=== PATIENT | female | born 1995 | race Hispanic/Latino ===

== ENCOUNTER 2018-05-20 10:57 | Inpatient (IN) | payer OTHER ==
[~2018-05-20] VITALS: Ht 172.7 cm; Wt 108.0 kg
[~2018-05-20 10:57] MED LIST: ADDERALL 20 MG20 MG PO; ATARAX PO; SYMBICORT 160-4.6 GM; Z LOESTRIN; Z.0.ALBUTEROL SULF8. INH; Z.0.SINGULAIR10 MG PO; Z.0.VERAMYST10 GM
--- OUTSIDE RECORDS SUMMARY | 2018-05-20 11:03 | XMS REPORT ---
Author Author [facility] Address Unknown Phone Unavailable Care Team Providers Care Morning Caregiver Name Role Phone Unavailable Unavailable Payers Payer Name Policy Type Policy Number Effective Date Expiration Date Problems This patient has no known problems. Allergies, Adverse Reactions, Alerts Allergy Name Allergy Type Status Severity Reaction(s) Onset Date Inactive Date Treating Clinician Comments No Known Allergies DA Active U 2011-06-12 00:00:00 Medications This patient has no known medications. Results Test Description Test Time Test Comments Text Results Atomic Results Result Comments BASIC METABOLIC PANEL 2018-05-05 22:43:00 SODIUM (test code=NA) 137 mEq/L 134-147 POTASSIUM (test code=K) 3.4 mEq/L 3.4-5.0 CHLORIDE (test code=CL) 106 mEq/L 100-108 CARBON DIOXIDE (test code=CO2) 24 mEq/L 21-33 ANION GAP (test code=GAP) 10 0-20 GLUCOSE (test code=GLU) 81 mg/dL 70-110 BLOOD UREA NITROGEN (test code=BUN) 9 mg/dL 7-18 GLOMERULAR FILTRATION RATE (test code=GFR) 89.7 110-120 Units of measure=ml/min/1.73 m2 CREATININE (test code=CREAT) 0.8 mg/dL 0.6-1.3 CALCIUM (test code=CA) 9.1 mg/dL 8.0-10.5 HEPATIC FUNCTION [id number] 22:43:00* Test Item Value Reference Range Comments TOTAL PROTEIN (test code=PROT) 9.8 g/dL 6.4-8.2 ALBUMIN (test code=ALB) 4.20 g/dL 3.4-5.0 BILIRUBIN TOTAL (test code=BILT) 0.80 mg/dL 0.0-1.0 BILIRUBIN DIRECT (test code=BILD) 0.20 MG/DL 0.0-0.30 BILIRUBIN INDIRECT (test code=BILIND) 0.60 MG/DL SGOT/AST (test code=AST) 22 IUnit/L 15-37 SGPT/ALT (test code=ALT) 26 IUnit/L 15-65 ALKALINE PHOSPHATASE TOTAL (test code=ALKP) 99 IUnit/L 20-125 HCG SERUM [id number] 22:43:00* Test Item Value Reference Range Comments HCG SERUM QUAL (test code=HCGQL) SERUM NEGATIVE NEGATIVE BASIC METABOLIC [id number] 22:36:00* Test Item Value Reference Range Comments SODIUM (test code=NA) mEq/L 134-147 POTASSIUM (test code=K) mEq/L 3.4-5.0 CHLORIDE (test code=CL) mEq/L 100-108 CARBON DIOXIDE (test code=CO2) mEq/L 21-33 ANION GAP (test code=GAP) 0-20 GLUCOSE (test code=GLU) mg/dL 70-110 BLOOD UREA NITROGEN (test code=BUN) mg/dL 7-18 GLOMERULAR FILTRATION RATE (test code=GFR) 110-120 CREATININE (test code=CREAT) mg/dL 0.6-1.3 CALCIUM (test code=CA) mg/dL 8.0-10.5 HEPATIC FUNCTION [id number] 22:36:00* Test Item Value Reference Range Comments TOTAL PROTEIN (test code=PROT) g/dL 6.4-8.2 ALBUMIN (test code=ALB) g/dL 3.4-5.0 BILIRUBIN TOTAL (test code=BILT) mg/dL 0.0-1.0 BILIRUBIN DIRECT (test code=BILD) MG/DL 0.0-0.30 SGOT/AST (test code=AST) IUnit/L 15-37 SGPT/ALT (test code=ALT) IUnit/L 15-65 ALKALINE PHOSPHATASE TOTAL (test code=ALKP) IUnit/L 20-125 HCG SERUM [id number] 22:36:00* Test Item Value Reference Range Comments HCG SERUM QUAL (test code=HCGQL) SERUM NEGATIVE NEGATIVE URINALYSIS [id number] 22:35:00* Test Item Value Reference Range Comments UA COLOR (test code=COLU) STRAW YEL/STRAW UA APPEARANCE (test code=APPU) CLEAR CLEAR UA GLUCOSE DIPSTICK (test code=DGLUU) NEGATIVE NEGATIVE UA BILIRUBIN DIPSTICK (test code=BILU) NEGATIVE NEGATIVE UA KETONE DIPSTICK (test code=KETU) NEGATIVE NEGATIVE UA SPECIFIC GRAVITY (test code=SGU) 1.002 1.005-1.030 UA BLOOD DIPSTICK (test code=DAVIDSON) 3+ NEGATIVE UA PH DIPSTICK (test code=KALIN) 6.0 5.0-7.0 UA PROTEIN DIPSTICK (test code=PROU) NEGATIVE NEGATIVE UA UROBILINIOGEN DIPSTICK (test code=URO) 0.2 mg/dL 0.2-1.0 UA NITRITE DIPSTICK (test code=GABY) NEGATIVE NEGATIVE UA LEUKOCYTE ESTERASE DIPSTICK (test code=LEUU) NEGATIVE NEGATIVE UA WBC (test code=WBCU) 0-3 WBC/HPF 0-3 UA RBC (test code=RBCU) 0-3 RBC/HPF 0-3 UA BACTERIA (test code=BACU) TRACE /HPF NONE SEEN UA SQUAMOUS CELLS (test code=SQU) 0-5 /HPF NONE SEEN COMMENTS: Clean CatchCBC W/AUTO [id number] 22:20:00* Test Item Value Reference Range Comments WHITE BLOOD CELL (test code=WBC) 13.86 x10 3/uL 4.5-11.0 RED BLOOD CELL (test code=RBC) 4.83 x10 6/uL 3.54-5.02 HEMOGLOBIN (test code=HGB) 12.1 g/dL 11.0-15.0 HEMATOCRIT (test code=HCT) 40.3 % 33.0-45.0 MEAN CELL VOLUME (test code=MCV) 83.4 fL 81.0-99.0 MEAN CELL HGB (test code=MCH) 25.1 pg 27.0-33.0 MEAN CELL HGB CONCETRATION (test code=MCHC) 30.0 g/dL 33.0-37.0 RED CELL DISTRIBUTION WIDTH CV (test code=RDW) 14.7 % 11.5-14.5 RED CELL DISTRIBUTION WIDTH SD (test code=RDW-SD) 44.6 fL 37.0-54.0 PLATELET COUNT (test code=PLT) 310 x10 3/uL 150-400 MEAN PLATELET VOLUME (test code=MPV) 10.5 fL 7.0-9.0 NEUTROPHIL % (test code=NT%) 81.2 % 56.0-77.0 IMMATURE GRANULOCYTE % (test code=IG%) 0.5 % 0.0-2.0 LYMPHOCYTE % (test code=LY%) 12.8 % 14.0-32.0 MONOCYTE % (test code=MO%) 5.1 % 4.8-9.0 EOSINOPHIL % (test code=EO%) 0.1 % 0.3-3.7 BASOPHIL % (test code=BA%) 0.3 % 0.0-2.0 NUCLEATED RBC % (test code=NRBC%) 0.0 % 0-0 NEUTROPHIL # (test code=NT#) 11.26 x10 3/uL 2.0-7.6 IMMATURE GRANULOCYTE # (test code=IG#) 0.07 x10 3/uL 0.00-0.03 LYMPHOCYTE # (test code=LY#) 1.77 x10 3/uL 1.0-3.8 MONOCYTE # (test code=MO#) 0.71 x10 3/uL 0.1-0.8 EOSINOPHIL # (test code=EO#) 0.01 x10 3/uL 0.0-0.2 BASOPHIL # (test code=BA#) 0.04 x10 3/uL 0.0-0.2 NUCLEATED RBC # (test code=NRBC#) 0.00 x10 3/uL 0.0-0.1 MANUAL DIFF REQUIRED (test code=MDIFF) NO - US TRANSVAGINAL NON [id number] 21:12:00 Name: RIGO WILBURN TEGAN [facility] : 1995 Age/S: 22 / F [address] [place] [address] Unit #: [id number] Loc: [place] [address] Phys: DeshaunTortio DO Acct: [id number] Dis Date: Status: REG ER PHONE #: [phone] Exam Date: 05/05/20182035 FAX #: [phone] Reason: PAIN EXAMS: CPT CODE: [id number] [place] [address] TRANSABDOMINAL AND TRANSVAGINAL PELVIC ULTRASOUND, BILATERAL DUPLEX OVARIAN DOPPLER INDICATION: Pelvic pain, vaginal bleeding and fever. Intrauterine device. Rule out ovarian torsion or infection. TECHNIQUE: Transabdominal and transvaginal pelvic ultrasound was performed with osborn scale and Doppler images. Bilateral duplex ovarian Doppler was performed. COMPARISONS: CT abdomen and pelvis 05/27/2011, pelvic ultrasound 05/27/2011 FINDINGS: TRANSABDOMINAL PELVIC ULTRASOUND: The uterus measures 4.5 cm transverse. There is an intrauterine device within the endometrial cavity. The endometrial stripe measures 0.8 cm thick. There is no endometrial canal fluid detected. The right ovary measures 1.1 x 2 x 1.3 cm. The left ovary is not visualized due to in tervening bowel. There is no intra-abdominal free fluid. Transvaginal pelvic ultrasound was performed in order to better visua lize the pelvic structures. TRANSVAGINAL PELVIC ULTRASOUND: The uterus measures 6.8 x 4.1 x 4.8 cm. There is an intrauterine device within the endometrial cavity. The endometrial stripe measures 1.2 cm thick, normal for a patient this age. There is no endometrial canal fluid. The right ovary measures 3.7 x 2.1 x 1.6 cm. There is nor mal color Doppler blood flow to the right ovary. There is a normal low resistance arterial spectral Doppler waveform with peak systolic veloc ity of 13 cm/s. The left ovary measures 3.7 x 1.6 x 2.7 cm with no rmal follicular changes. There is normal color Doppler blood flow to the left ovary. There is a normal low resistance arterial spectral Doppler wa veform. The peak systolic velocity is 15 cm/s. PAGE 1 Signed Report (CONTINUED) Name: WILBURNRIGOLORNA HELTON [facility] : 1995 Age/S: 22 / F [address] [place] [address] Blvd Unit #: [id number] Loc: [place] [address] Phys: DeshaunTorito DO Acct: [id number] Dis Date: Status: REG ER PHONE #: [phone] Exam Date: 05/05/20182035 FAX #: [phone] Reason: PAIN EXAMS: CPT CODE: [id number] [place] [address] <Continued> There is a small amount of simple free fluid in the pelvis. BILATERAL DUPLEX OVARIAN DOPPLER: There is normal color Doppler blood flow to the left ovary. There is a normal low resistance arterial spectral Doppler waveform. The peak systolic velocity is 15 cm/s. There is normal color Doppler blood flow to the right ovary. There is a normal low resistance arterial spectral Doppler waveform with peak systolic velocity of 13 cm/s. IMPRESSION: 1. There is no acute uterine or ovarian abnormality detected. 2. Normal bilateral ovarian blood flow. 3. Normal intrauterine device within the endometrial cavity. 4. There is a small amount of nonspecific simple free fluid in the pelvis. This may be physiologic or reactive. at 2111 Reported and signed by: Jeff Chow D.O. CC: Torito Meade DO Technologist: Ester Billy RDMS (AB) (OB) Trnscb Date/Time: 05/05/2018 (2111) [email or web address] Orig Print D/T: S: 05/05/2018 (2115) Probe: [id number] PAGE 2 Signed Report - US PELVIS [id number] 21:12:00 Name: RIGO WILBURN [facility] : 1995 Age/S: 22 / F [address] [place] [address] Unit #: [id number] Loc: [place] [address] Phys: Mo Meade DO Acct: [id number] Di s Date: Status: REG ER PHONE #: Exam Date: 05/05/20182035 FAX #: Reason: Pelvic Pain EXAMS: CPT CODE: [id number] US PELVIS COM PLETE 63473 TRANSABDOMINAL AND TRANSV AGINAL PELVIC ULTRASOUND, BILATERAL DUPLEX OVARIAN DOPPLER I NDICATION: Pelvic pain, vaginal bleeding and fever. Intrauterine device. Rule out ovarian torsion or infection. TECHNIQUE: Transabdominal and transvaginal pelvic ultrasound was performed with osborn scale and Dopp ler images. Bilateral duplex ovarian Doppler was performed. COMPARISONS: CT abdomen and pelvis 05/27/2011, pelvic ultrasound 05/27/2011 FINDINGS: TRANSABDOMINAL PELVIC ULTRASOUND: The uterus measures 4.5 cm transverse. There is an intrauterine device within the endometrial cavity. The endometrial stripe measures 0.8 cm thick. There is no endometrial canal fluid detected. The right ov jennifer measures 1.1 x 2 x 1.3 cm. The left ovary is not visualized due to in tervening bowel. There is no intra-abdominal free fluid. Transvaginal pelvic ultrasound was performed in order to better visua lize the pelvic structures. TRANSVAGINAL PELVIC ULTRASOUND: The uterus measures 6.8 x 4.1 x 4.8 cm. There is an intrauterine device within the endometrial cavity. The endometrial stripe measures 1.2 cm thick, normal for a patient this age. There is no endometrial canal fluid. The right ovary measures 3.7 x 2.1 x 1.6 cm. There is nor mal color Doppler blood flow to the right ovary. There is a normal low resistance arterial spectral Doppler waveform with peak systolic veloc ity of 13 cm/s. The left ovary measures 3.7 x 1.6 x 2.7 cm with no rmal follicular changes. There is normal color Doppler blood flow to the left ovary. There is a normal low resistance arterial spectral Doppler wa veform. The peak systolic velocity is 15 cm/s. PAGE 1 Signed Report (CONTINUED) Name: RIGO WILBURN [facility] : 1995 Age/S: 22 / F [address] [place] [address] Unit #: [id number] Loc: [place] [address] Phys: Torito Meade DO Acct: [id number] Dis Date: Status: REG ER PHONE #: [phone] Exam Date: 05/05/20182035 FAX #: [phone] Reason: Pelvic Yazan n EXAMS: CPT CODE: [id number] US PELVIS COMPLETE 25805 <Continued> There is a small amount of simple free fluid in the pelvis. BILATERAL DUPLEX OVARIAN DOPPLER: There is normal color Doppler blood flow to the left ovary. There is a normal low resistance arterial spectral Doppler waveform. The peak systolic velocity is 15 cm/s. There is normal color Doppler blood flow to the right ovary. There is a normal low resistance arterial spectral Doppler waveform with peak systolic velocity of 13 cm/s. IMPRESSION: 1. There is no acute uterine or ovarian abnormality detected. 2. Normal bilateral ovarian blood flow. 3. Normal intrauterine device within the endometrial cavity. 4. There is a small amount of nonspecific simple free fluid in the pelvis. This may be physiologic or reactive. at 2111 Reported and signed by: Jeff Chow D.O. CC: Torito Meade DO Technologist: Ester Billy RDMS () (OB) Trnscb Date/Time: 05/05/2018 (2111) [email or web address] Orig Print D/T: S: 05/05/2018 (2115) Probe: PAGE 2 Signed Report
[2018-05-20] MEDS ORDERED: SODIUM CHLORIDE 0.9% 1000ML 1,000 ML IV STA (11:26)
[2018-05-20] MEDS ORDERED: IBUPROFEN 400 MG TAB PO ONE (11:30)
[2018-05-20] MEDS ORDERED: SODIUM CHLORIDE 0.9% 1000ML 1,000 ML IV SCH (11:30)
[2018-05-20] MEDS ORDERED: HYDROCODONE/APAP 10MG-325MG TAB PO ONE (11:30)
[2018-05-20] MEDS ORDERED: CEFTRIAXONE SOD 1 GM/NS 50 ML 50 ML IV ONE (12:00)
[2018-05-20 12:28] LABS: BASOPHILS # (AUTO) 0.1 (0.0-0.1); BASOPHILS % 0.2 % (0.0-1.0); HEMATOCRIT 34.9 % (34.2-44.1); LYMPHOCYTES # (AUTO) 1.3 (1.0-3.2); LYMPHOCYTES % 4.5 % (18.0-39.1); MEAN CORPUSCULAR HEMOGLOBIN 24.9 pg (28-32); MEAN CORPUSCULAR HGB CONC 31.5 g/dL (31-35); MONOCYTES # (AUTO) 1.8 (0.2-0.8); MONOCYTES % 6.1 % (4.4-11.3); NEUTROPHILS # (AUTO) 25.2 (2.1-6.9); NEUTROPHILS % 88.1 % (38.7-80.0); PLATELET COUNT 379 x10e3/uL (140-360); RED BLOOD COUNT 4.42 x10e6/uL (3.6-5.1); RED CELL DISTRIBUTION WIDTH 15.2 % (11.7-14.4)
[2018-05-20 12:40] LABS: ALANINE AMINOTRANSFERASE 23 IU/L (0-55); ALBUMIN 3.9 g/dL (3.5-5.0); ALKALINE PHOSPHATASE 82 IU/L (40-150); ANION GAP 13.4 mmol/L (8-16); BLOOD UREA NITROGEN 9 mg/dL (7-26); BUN/CREATININE RATIO 10 (6-25); CALCIUM 9.6 mg/dL (8.4-10.2); CARBON DIOXIDE 23 mmol/L (22-29); CHLORIDE 101 mmol/L (98-107); CREATININE, SERUM 0.91 mg/dL (0.57-1.11); EST GLOMERULAR FILTRATION RATE > 60 ML/MIN (60-); GLUCOSE 107 mg/dL (74-118); POTASSIUM 3.4 mmol/L (3.5-5.1); SODIUM 134 mmol/L (136-145)
[2018-05-20 12:56] LABS: CLARITY,URINE SL CLOUDY (CLEAR); COLOR,URINE YELLOW (YELLOW); LEUKOCYTE ESTERASE ,URINE NEGATIVE (NEGATIVE); NITRITE,URINE POSITIVE (NEGATIVE)
[2018-05-20 12:57] LABS: BILIRUBIN,URINE NEGATIVE (NEGATIVE); KETONES,URINE 1+ (NEGATIVE); PROTEIN,URINE DIPSTICK 1+ (NEGATIVE); URINE UROBILINOGEN 0.2 mg/dL (0.2 - 1)
[2018-05-20 12:59] LABS: WBC,URINE (MAN) 21-50 /HPF (0-5)
[2018-05-20 13:00] LABS: BACTERIA,URINE MANY /HPF; EPITHELIAL CELLS,URINE MODERATE /LPF
[2018-05-20] MEDS ORDERED: MORPHINE SULFATE 2 MG/ML SYR 1ML IV PRN (14:45)
[2018-05-20] MEDS ORDERED: CEFTRIAXONE SOD 1 GM/NS 50 ML 50 ML IV SCH (14:45)
[2018-05-20] MEDS ORDERED: MORPHINE SULFATE INJ 4 MG/ML INJ 1ML IV PRN (15:00)
--- NOTE | 2018-05-20 15:30 | NUR ---
RCMara PT FROM ER BY WHEEL CHAIR PT IS ALERT AND ORIENTED PT RESTING ON BED NO SIGNS OF ANY DISTRESS NOTED VITALS CHECKED ADMISSION ASSESSMENT DONE SHE SAID SHE STARTED TO PAIN ON ABDOMEN ,NAUSEA ,VOMITING AND DIARRHEA FOR ONE WEEK SHE TOOK OUT PT TREATMENT NOW SHE C/O PAIN ON THE LOWER BACK 05/03,IV PATENT INSTRUCTED PT AND FAMILY REGARDING HOSPITAL POLICY AND ROUTINE BED LOW AND LOCKED CALL LIGHT IN REACH
--- NOTE | 2018-05-20 15:31 | Diagnostic Imaging Report ---
EXAMINATION: CT of the abdomen and pelvis with contrast. TECHNIQUE: Helical CT images of the abdomen and pelvis were performed from the lung bases to the lesser trochanters after the intravenous administration of 150 cc of Isovue 300 and the oral administration of none. Coronal and sagittal reformatted images were obtained.Dose modulation, iterative reconstruction, and/or weight based adjustment of the mA/kV was utilized to reduce the radiation dose to as low as reasonably achievable COMPARISON: None. CLINICAL HISTORY:Abdominal and flank pain DISCUSSION: ABDOMEN/PELVIS: LOWER THORAX:Unremarkable. HEPATOBILIARY: No focal hepatic lesions. No intra-or extrahepatic biliary ductal dilation. The gallbladder is normal. SPLEEN: No splenomegaly. PANCREAS: No focal masses or ductal dilatation. ADRENALS: No adrenal nodules. KIDNEYS/URETERS: 3.1 cm right renal lesion which measures 50 Hounsfield unit. No calculi. No hydronephrosis. PELVIC ORGANS/BLADDER: The bladder is normal. PERITONEUM/RETROPERITONEUM: No free air or fluid. LYMPH NODES: No intra-abdominal, retroperitoneal, pelvic or inguinal lymphadenopathy. VESSELS: The celiac trunk,superior and inferior mesenteric and bilateral renal arteries are patent The portal, superior mesenteric and splenic veins are patent. GI TRACT: No distention or wall thickening. BONES AND SOFT TISSUE: No bony destructive lesions. No soft tissue abnormalities. IMPRESSION: No acute CT finding. Right renal 3.1 cm lesion may reflect a hemorrhagic/proteinaceous cysts. Nonemergent follow-up renal ultrasound would be of benefit. Signed by: Dr. Jelani Quiñones M.D. on 05/20/2018 3:28 PM
[2018-05-20 16:54] VITALS: BP 100/57
[2018-05-20] MEDS: ACETAMINOPHEN 325 MG TAB PO PRN ×2 (17:00→23:00)
[2018-05-20] MEDS: CEFEPIME 1GM/NS 0.9% 50 ML 50 ML IV SCH (17:00)
[2018-05-20] MEDS: SODIUM CHLORIDE 0.9% 1000ML 1,000 ML IV SCH ×2 (17:00→22:40)
[2018-05-20 17:15] VITALS: BP 100/52
[2018-05-20 17:33] VITALS: BP 100/52
--- NOTE | 2018-05-20 18:45 | NUR ---
PT RESTING ON BED BED SIDE REPORT GIVEN TO ONCOMING NURSE
[2018-05-20] MEDS ORDERED: SODIUM CHLORIDE 0.9% 50ML 50 ML ONE (19:12)
[2018-05-20] MEDS ORDERED: IOPAMIDOL 370 MG/ML 200 ML INFUS..BTL INJ ONE (19:12)
[2018-05-20 20:41] LABS: LYMPHOCYTES % (MANUAL) 7 % (19-48); MONOCYTES % (MANUAL) 4 % (3.4-9.0); NEUTROPHILS % (MANUAL) 88 % (40-74); PLATELET ESTIMATE ADEQUATE; PLATELET MORPHOLOGY COMMENT NORMAL; RBC MORPHOLOGY COMMENT NORMAL
[2018-05-20 21:15] VITALS: BP 102/56
[2018-05-20 21:58] VITALS: BP 102/56
--- NOTE | 2018-05-20 23:15 | History and Physical ---
HISTORY: Ms. 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 Fever up to 104 at home. She is denying any complaints of chest pain. She was having nausea and vomiting. She has an IUD, which was recently checked and it was in place. She denies any dysuria or hematuria. In the emergency room, the patient's temperature was 102. REVIEW OF SYSTEMS: GENERAL: She was having fever and chills. HEAD: Denies any head trauma. ENT: Denies any earaches. CVS: Denies any chest pain. RESPIRATORY: Shortness of breath. The rest of the review of systems are negative except as in the HPI. PAST MEDICAL HISTORY: None. PAST SURGICAL HISTORY: Tonsillectomy and adenoidectomy. FAMILY AND SOCIAL HISTORY: She does not smoke. Does not drink. She works as a nurse. PHYSICAL EXAMINATION: VITAL SIGNS: Temperature of 102, pulse of 115, blood pressure 131/73, respiratory rate of 18, O2 saturation 96%. HEENT: Atraumatic and normocephalic. NECK: Supple. CHEST: Clear to auscultation bilaterally. ABDOMEN: Mildly tender in the lower abdomen. EXTREMITIES: No pedal edema. NEUROLOGIC: Awake and alert. No focal neurological deficits. LABORATORY DATA: White count of 28,000, hemoglobin 11.0, platelets 379. Chemistries within normal limits. CT of the abdomen and pelvis, the reading is pending. ASSESSMENT AND PLAN: Ms. Gordon is a 16-vxnc-ujg-female, who possibly has urinary tract infection versus pyelonephritis. Urine WBCs are 21 to 50. Cultures pending. Plan ID consult. Agree with the IV antibiotics. If the CT scan is showing any renal stones, then Urology consultation will be done. MD ROSANNE Scott/ONELIA /[id number]
[2018-05-20] MEDS: ONDANSETRON HCL INJ 2MG/ML 2ML 2 MG/ML VIAL IV PRN (23:56)
[2018-05-21] VITALS (7 sets, daily range): BP systolic 90–135; BP diastolic 49–73
[2018-05-21] MEDS: CEFEPIME 1GM/NS 0.9% 50 ML 50 ML IV SCH ×3 (00:08→16:46)
[2018-05-21] MEDS: IBUPROFEN 400 MG TAB PO PRN ×2 (00:08→14:30)
--- NOTE | 2018-05-21 01:45 | NUR ---
PT RESTING IN BED WITH NO S/S OF DISTRESS.RESPIRATIONS EVEN/NON LABORED.RECHECKED TEMP AT THIS TIME(SEE VITAL SIGNS).CALL LIGHT WITHIN EASY REACH.WILL CONTINUE TO MONITOR CLOSELY.
--- NOTE | 2018-05-21 01:46 | Consultation ---
DATE OF CONSULTATION: REASON FOR CONSULTATION: UTI. HISTORY OF PRESENT ILLNESS: This patient is very pleasant 22-year-old female, denies any past medical history. She has a history of asthma. A week ago, she had some fever and chills. She went to [facility]. She was told it was virus and nothing was done, but now she is back with fever, chills, and abdominal pain on the left side. She went to her doctor at [facility] who started Rocephin and sent her here. The patient is currently being admitted. PAST MEDICAL HISTORY: She denies. PAST SURGICAL HISTORY: She denies. ALLERGIES: NKA. SOCIAL HISTORY: There is no smoking, drug abuse, or alcohol abuse. FAMILY HISTORY: Otherwise, unremarkable. REVIEW OF SYSTEMS: HEENT: Negative. PULMONARY: Negative. CARDIAC: Negative. GI: No nausea, no vomiting, no diarrhea. : Negative. PHYSICAL EXAMINATION: GENERAL: She is currently alert and oriented, does not seem to be in acute distress. VITAL SIGNS: Stable, currently afebrile. HEENT: She is NECK: Supple. CHEST: Clear. HEART: S1, S2 normal. ABDOMEN: Soft. Bowel sounds present. No tenderness. IMPRESSION: Fever, chills, and left-sided abdominal pain. White count 28,000 on admission. Concerned about pyelonephritis. We will give her cefepime 1 g IV piggyback q.8. Obtain blood cultures, urine cultures. Obtain ultrasound of the abdomen in a few days. A CAT scan, which was done, showed no acute finding. We will follow with you. MD JACOB Rondon/ONELIA /[id number]
[2018-05-21] MEDS: SODIUM CHLORIDE 0.9% 1000ML 1,000 ML IV SCH ×4 (04:08→22:40)
[2018-05-21 05:05] LABS: BASOPHILS % 0.2 % (0.0-1.0); EOSINOPHILS # (AUTO) 0.1 (0.0-0.4); EOSINOPHILS % 0.5 % (0.0-6.0); HEMATOCRIT 29.2 % (34.2-44.1); LYMPHOCYTES # (AUTO) 1.4 (1.0-3.2); LYMPHOCYTES % 7.9 % (18.0-39.1); MEAN CORPUSCULAR HEMOGLOBIN 24.7 pg (28-32); MEAN CORPUSCULAR HGB CONC 30.8 g/dL (31-35); MEAN CORPUSCULAR VOLUME 80.2 fL (81-99); MONOCYTES # (AUTO) 0.8 (0.2-0.8); MONOCYTES % 4.4 % (4.4-11.3); NEUTROPHILS # (AUTO) 14.9 (2.1-6.9); NEUTROPHILS % 86.4 % (38.7-80.0); PLATELET COUNT 265 x10e3/uL (140-360); RED BLOOD COUNT 3.64 x10e6/uL (3.6-5.1); RED CELL DISTRIBUTION WIDTH 15.2 % (11.7-14.4)
[2018-05-21 05:38] LABS: ALANINE AMINOTRANSFERASE 20 IU/L (0-55); ALBUMIN 2.7 g/dL (3.5-5.0); ALBUMIN/GLOBULIN RATIO 0.9 (0.8-2.0); ALKALINE PHOSPHATASE 65 IU/L (40-150); ANION GAP 9.7 mmol/L (8-16); BLOOD UREA NITROGEN 8 mg/dL (7-26); BUN/CREATININE RATIO 11 (6-25); CALCIUM 8.4 mg/dL (8.4-10.2); CARBON DIOXIDE 21 mmol/L (22-29); CHLORIDE 110 mmol/L (98-107); CREATININE, SERUM 0.72 mg/dL (0.57-1.11); EST GLOMERULAR FILTRATION RATE > 60 ML/MIN (60-); GLUCOSE 114 mg/dL (74-118); POTASSIUM 3.7 mmol/L (3.5-5.1); SODIUM 137 mmol/L (136-145)
--- NOTE | 2018-05-21 07:07 | NUR ---
REPORT GIVEN TO ONCOMING NURSE,WALKING ROUNDS MADE.PT RESTING IN BED WITH NO S/S OF DISTRESS.
--- NOTE | 2018-05-21 07:10 | NUR ---
RCD PT BED PT IS ALERT AND ORIENTED PT RESTING ON BED NO SIGNS OF ANY DISTRESS NOTED FAMILY AT BED SIDE BED LOW AND LOCKED CALL LIGHT IN REACH
[2018-05-21] MEDS: ACETAMINOPHEN 325 MG TAB PO PRN (08:56)
--- NOTE | 2018-05-21 11:35 | NUR ---
PT C/O PAIN ON BACK SHE NEED SOME STRONG MEDS PAGED AND NOTIFIED DR HAZEL GOT NEW ORDERS
[2018-05-21] MEDS: HYDROCODONE/APAP 5MG-325MG TAB PO PRN ×2 (11:55→20:49)
[2018-05-21] MEDS ORDERED: HYDROCODONE/APAP 5MG-325MG TAB ONE (11:57)
--- NOTE | 2018-05-21 15:38 | Diagnostic Imaging Report ---
EXAM: Renal Ultrasound INDICATION: Renal cyst. COMPARISON: CT Abdomen/Pelvis 05/20/18. TECHNIQUE: Transverse and longitudinal images of the kidneys and bladder were obtained. FINDINGS: Right Kidney: Length: Measures 12.1 x 5.3 x 5.3 cm Appearance: Normal echogenicity. Collecting system: No hydronephrosis Stones: None Cyst/Mass: There is a heterogeneous echotexture 3.6 x 1.9 x 3.8 cm lesion within the right mid pole kidney without associated vascular flow. Left Kidney: Length: Measures 12.6 x 6.4 x 4.6 cm Appearance: Normal echogenicity. Collecting system: No hydronephrosis Stones: None Cyst/Mass: None Bladder: Unremarkable in appearance. Bilateral ureteral jets are noted. IMPRESSION: Heterogeneous lesion measuring up to 3.6 cm in the right mid pole kidney without associated vascular flow. Given CT appearance on 05/20/2018, the findings could represent a hemorrhagic cyst. A follow-up renal ultrasound is suggested in 3 months to assess for stability. Signed by: Dr. Iris Larson MD on 05/21/2018 3:34 PM
--- NOTE | 2018-05-21 19:19 | NUR ---
PT RESTING ON BED BED SIDE REPORT GIVEN TO ONCOMING NURSE
[2018-05-21] MEDS: ONDANSETRON HCL INJ 2MG/ML 2ML 2 MG/ML VIAL IV PRN (21:47)
[2018-05-22] VITALS (9 sets, daily range): BP systolic 99–120; BP diastolic 55–73
[2018-05-22] MEDS: CEFEPIME 1GM/NS 0.9% 50 ML 50 ML IV SCH ×2 (00:38→09:20)
--- NOTE | 2018-05-22 00:38 | NUR ---
PT C/O OF SHORTNESS OF BREATH.V/S CHECKED,BP 120/60,P 96,R 20, T 99.5(ORAL),PUL OX 90-91 ON ROOM AIR,O2 APPLIED AT 2 LPM VIA NC PUL OX CAME UP TO 96%.PT ALSO C/O OF INDIGESTION.WILL SHELBIE HAZEL.
--- NOTE | 2018-05-22 00:47 | NUR ---
DR HAZEL PAGED AWAITING CALL BACK.
--- NOTE | 2018-05-22 01:09 | NUR ---
DR HAZEL CALLED BACK,NOTIFIED DR HAZEL ABOUT PT C/O'S.N/O'S RECEIVED AND ENTERED.
[2018-05-22] MEDS: FAMOTIDINE 20 MG TAB PO SCH ×2 (01:15→09:21)
--- NOTE | 2018-05-22 02:23 | Diagnostic Imaging Report ---
EXAMINATION: CHEST SINGLE (PORTABLE) COMPARISON: None INDICATION: Shortness of breath ^shortness of breath ^[id number] ^0135 DISCUSSION: Frontal view of the chest obtained at 0135 hours. HEART AND MEDIASTINUM: The heart is normal size, possibly due to portable technique LINES: None. LUNGS: Low lung volumes and bibasilar airspace opacities. Pulmonary vascular markings are mildly prominent. No interstitial edema. PLEURA: No pleural effusion or pneumothorax. BONES AND SOFT TISSUES: No focal osseous lesion. The soft tissues are normal. IMPRESSION: Low lung volumes and bibasilar airspace opacities suggestive of infiltrate or pneumonia. Recommend correlation with PA and lateral chest x-ray when clinically feasible. Mild vascular congestion. Signed by: Dr. Gaston Rivera MD on 05/22/2018 2:20 AM
[2018-05-22] MEDS: ACETAMINOPHEN 325 MG TAB PO PRN ×2 (04:20→17:56)
[2018-05-22] MEDS: IBUPROFEN 400 MG TAB PO PRN (05:58)
--- NOTE | 2018-05-22 06:20 | NUR ---
PAGED AND SPOKE TO DR HAZEL NOTIFIED ABOUT CXR RESULT.N/O RECEIVED.
[2018-05-22] MEDS ORDERED: FUROSEMIDE INJ 10 MG/ML 2 ML VIAL IV ONE (06:30)
--- NOTE | 2018-05-22 07:05 | NUR ---
Received patient mid fowlers position, side rails upx2, call light within reach. AAOX4 to time, person, place, situation. Respirations even and unlabored. O2 2L NC. Instructed patient to use call light for assistance. Will continue to monitor.
--- NOTE | 2018-05-22 07:15 | NUR ---
REPORT GIVEN TO ONCOMING NURSE,WALKING ROUNDS MADE.PT SITTING UP IN CHAIR WITH NO S/S OF DISTRESS.
[2018-05-22] MEDS ORDERED: MORPHINE SULFATE INJ 4 MG/ML INJ 1ML IV PRN (10:30)
[2018-05-22] MEDS ORDERED: KETOROLAC TROMETHAMINE 30 MG/ML VIAL IV PRN (10:30)
--- NOTE | 2018-05-22 10:33 | NUR ---
aware of patient's temperature. See orders
[2018-05-22] MEDS ORDERED: VANCOMYCIN 1GM/NS 250 ML 250 ML IV ONE (10:45)
[2018-05-22] MEDS ORDERED: PIPER-TAZ 3.375 GM 50 ML IV SCH (10:45)
[2018-05-22 11:48] LABS: BASOPHILS % 0.5 % (0.0-1.0); EOSINOPHILS % 0.5 % (0.0-6.0); HEMATOCRIT 32.2 % (34.2-44.1); HEMOGLOBIN 9.9 g/dL (12.0-16.0); LYMPHOCYTES # (AUTO) 1.7 (1.0-3.2); LYMPHOCYTES % 20.2 % (18.0-39.1); MEAN CORPUSCULAR HEMOGLOBIN 24.3 pg (28-32); MEAN CORPUSCULAR HGB CONC 30.7 g/dL (31-35); MEAN CORPUSCULAR VOLUME 79.1 fL (81-99); MONOCYTES # (AUTO) 0.7 (0.2-0.8); NEUTROPHILS # (AUTO) 5.9 (2.1-6.9); NEUTROPHILS % 70.4 % (38.7-80.0); PLATELET COUNT 268 x10e3/uL (140-360); RED BLOOD COUNT 4.07 x10e6/uL (3.6-5.1); RED CELL DISTRIBUTION WIDTH 15.2 % (11.7-14.4)
[2018-05-22 12:07] LABS: ANION GAP 9.2 mmol/L (8-16); BLOOD UREA NITROGEN 6 mg/dL (7-26); BUN/CREATININE RATIO 8 (6-25); CALCIUM 8.6 mg/dL (8.4-10.2); CARBON DIOXIDE 24 mmol/L (22-29); CHLORIDE 109 mmol/L (98-107); CREATININE, SERUM 0.74 mg/dL (0.57-1.11); EST GLOMERULAR FILTRATION RATE > 60 ML/MIN (60-); GLUCOSE 107 mg/dL (74-118); POTASSIUM 3.2 mmol/L (3.5-5.1); SODIUM 139 mmol/L (136-145)
--- NOTE | 2018-05-22 12:30 | NUR ---
paged to notify of lab results. Awaiting for call back
--- NOTE | 2018-05-22 13:00 | NUR ---
aware of lab results. See orders
[2018-05-22] MEDS ORDERED: POTASSIUM CHLORIDE 20 MEQ TAB CR PO ONE (14:30)
[2018-05-22] MEDS: ALBUTEROL/IPRATROPIUM 3 ML NEB NEB SCH ×2 (14:47→19:45)
--- NOTE | 2018-05-22 15:20 | Diagnostic Imaging Report ---
EXAMINATION: CT scan of the chest with contrast. TECHNIQUE: Helical CT images of the chest were performed from the lung apices to the level of the adrenal glands after the intravenous administration of 100 cc of Omnipaque 300. Coronal and sagittal reformatted images were obtained. COMPARISON: None. CLINICAL HISTORY:Dyspnea DISCUSSION: LINES/TUBES: None. LUNGS AND AIRWAYS: Left lower lobe consolidation. Additional areas of mild airspace disease in the left upper lobe and right lower lobe. No pulmonary embolism. PLEURA: No pneumothorax or pleural effusions. HEART AND MEDIASTINUM: The thyroid gland is normal. Heart size enlarged. LYMPH NODES: There is no mediastinal, hilar or axillary lymphadenopathy. ABDOMEN: Limited contrast-enhanced views of the upper abdomen show no abnormality within the visualized liver, spleen, pancreas, or kidneys. The adrenal glands are normal. BONES AND SOFT TISSUES: No acute bony abnormalities. IMPRESSION: No pulmonary embolism. Multifocal pneumonia, most prominent left lower lobe. Signed by: Dr. Jelani Quiñones M.D. on 05/22/2018 3:17 PM
--- NOTE | 2018-05-22 15:39 | NUR ---
paged to notify of CT results
--- NOTE | 2018-05-22 15:42 | NUR ---
aware of CT results. No new orders
[2018-05-22] MEDS: LEVOFLOXACIN 750MG/D5W 150ML 150 ML IV SCH (16:16)
[2018-05-22] MEDS: ONDANSETRON HCL INJ 2MG/ML 2ML 2 MG/ML VIAL IV PRN (17:56)
[2018-05-22] MEDS: PIPER-TAZ 3.375 GM 50 ML IV SCH (17:57)
--- NOTE | 2018-05-22 17:57 | NUR ---
T100.2 PRN tylenol given
--- NOTE | 2018-05-22 18:46 | NUR ---
Resting in bed, family at bedside. No s/s of acute distress noted. Report to be given to oncoming nurse.
--- NOTE | 2018-05-22 19:04 | Consultation ---
DATE OF CONSULTATION: 05/22/2018 Urologic Consultation CHIEF COMPLAINT AND REASON FOR CONSULTATION: Renal mass. HISTORY OF PRESENT ILLNESS: Ms. Maura Gordon is a 22-year-old female patient, admitted to the hospital with fevers to 104 degrees at home. She has had dysuria, frequency, and possible chills. Denied nausea or vomiting. PAST MEDICAL HISTORY: IUD. MEDICATIONS: Please see MAR. ALLERGIES: NKDA. SOCIAL HISTORY: Denies smoking or drinking. FAMILY HISTORY: no urologic stone nor malignancies REVIEW OF SYSTEMS: Noncontributory for 12 systems except as above. PHYSICAL EXAMINATION: GENERAL: Young female in no acute distress. VITAL SIGNS: Temperature currently 99.9, pulse 108, blood pressure 115/63, respirations 19, and T-max 24 is 101.2. HEENT: Sclerae anicteric. NECK: Supple. BACK: no cvat ABDOMEN: Soft. It is nontender, nondistended. There is no palpable mass. No palpable hernias. : Normal female external genitalia. EXTREMITIES: Without edema. SKIN: Intact. Normal color. PERTINENT LABORATORY DATA: CT scan and ultrasound revealing a 3.6 cm right lesion suggestive of hemorrhagic versus proteinaceous cyst. Urinalysis; 11 to 20 reds, 21 to 50 whites. Beta hCG negative. Sodium of 134, potassium 3.4, chloride 101, bicarb 23, BUN 9, creatinine of 0.9, and glucose of 187. Hemoglobin 9, hematocrit 29, platelet count 265,000, and white blood cell count 17,000. IMPRESSION: 1. Urinary tract infection/pyelonephritis. 2. Right renal mass. 3. Microscopic hematuria. 4. Obesity. PLAN: The patient has been placed on empiric antibiotics. OK to dc on culture specific antibiotics. We would continue followup surveillance as an outpatient. MD ALLYSSA Hazel/MODL /[id number] cc: Shola Crawford MD MTDD
--- NOTE | 2018-05-22 19:28 | NUR ---
Patient received sitting up in bed. Family at bedside. AAO x 3. No c/o pain. No signs of respiratory distress. Bed locked and in lowest position. Bed rails up x 2. Patient instructed to call for assistance when needed. Call light within reach.
--- NOTE | 2018-05-22 22:02 | NUR ---
Urine specimen sent to lab for analysis.
[2018-05-22] MEDS: VANCOMYCIN HCL 1.25 GM in SODIUM CHLORIDE 0.9% 250ML 250 ML IV SCH (23:00)
[2018-05-23] MEDS: PIPER-TAZ 3.375 GM 50 ML IV SCH ×4 (00:14→17:31)
[2018-05-23] MEDS: ALBUTEROL/IPRATROPIUM 3 ML NEB NEB SCH ×4 (01:25→18:52)
[2018-05-23 05:22] LABS: BASOPHILS % 0.3 % (0.0-1.0); EOSINOPHILS % 0.6 % (0.0-6.0); HEMATOCRIT 29.8 % (34.2-44.1); HEMOGLOBIN 9.2 g/dL (12.0-16.0); LYMPHOCYTES # (AUTO) 1.6 (1.0-3.2); LYMPHOCYTES % 23.3 % (18.0-39.1); MEAN CORPUSCULAR HEMOGLOBIN 24.2 pg (28-32); MEAN CORPUSCULAR HGB CONC 30.9 g/dL (31-35); MEAN CORPUSCULAR VOLUME 78.4 fL (81-99); MONOCYTES # (AUTO) 0.6 (0.2-0.8); MONOCYTES % 8.2 % (4.4-11.3); NEUTROPHILS # (AUTO) 4.6 (2.1-6.9); NEUTROPHILS % 67.2 % (38.7-80.0); PLATELET COUNT 275 x10e3/uL (140-360); RED CELL DISTRIBUTION WIDTH 15.3 % (11.7-14.4)
[2018-05-23 05:45] LABS: ANION GAP 11.5 mmol/L (8-16); BLOOD UREA NITROGEN 6 mg/dL (7-26); BUN/CREATININE RATIO 8 (6-25); CARBON DIOXIDE 21 mmol/L (22-29); CHLORIDE 109 mmol/L (98-107); CREATININE, SERUM 0.74 mg/dL (0.57-1.11); EST GLOMERULAR FILTRATION RATE > 60 ML/MIN (60-); GLUCOSE 110 mg/dL (74-118); POTASSIUM 3.5 mmol/L (3.5-5.1); SODIUM 138 mmol/L (136-145)
[2018-05-23 06:13] VITALS: BP 108/56
[2018-05-23] MEDS: ACETAMINOPHEN 325 MG TAB PO PRN (06:15)
--- NOTE | 2018-05-23 07:20 | NUR ---
pt asleep resp even and unlabored at this time no distress noted, pt arousal to name, family member at bedside, call light in reach.
[2018-05-23 07:30] VITALS: BP 108/56
[2018-05-23 08:00] VITALS: BP 108/56
[2018-05-23] MEDS: FAMOTIDINE 20 MG TAB PO SCH (08:31)
--- NOTE | 2018-05-23 10:30 | NUR ---
pt up ambulating in pat with family member no distress noted.
--- NOTE | 2018-05-23 11:30 | NUR ---
Dr sprague here to see pt.
[2018-05-23] MEDS ORDERED: MAGNESIUM HYDROXIDE 30 ML UDC PO PRN (11:45)
[2018-05-23] MEDS ORDERED: IBUPROFEN 200 MG TAB PO PRN (11:45)
[2018-05-23] MEDS ORDERED: CITRATE OF MAGNESIA 300ML BOTTLE PO PRN (11:45)
[2018-05-23 12:00] VITALS: BP 106/57
[2018-05-23] MEDS: VANCOMYCIN HCL 1.25 GM in SODIUM CHLORIDE 0.9% 250ML 250 ML IV SCH ×2 (12:55→23:00)
--- NOTE | 2018-05-23 15:40 | NUR ---
here to see pt.
[2018-05-23 16:00] VITALS: BP 101/57
[2018-05-23] MEDS: LEVOFLOXACIN 750MG/D5W 150ML 150 ML IV SCH (17:31)
[2018-05-23] MEDS: KETOROLAC TROMETHAMINE 30 MG/ML VIAL IV PRN (17:31)
[2018-05-23] MEDS: DOCUSATE SODIUM 100 MG CAP PO SCH (17:31)
[2018-05-23] MEDS ORDERED: SODIUM CHLORIDE 0.9% 50ML 50 ML ONE (18:10)
[2018-05-23] MEDS ORDERED: IOPAMIDOL 370 MG/ML 200 ML INFUS..BTL INJ ONE (18:10)
--- NOTE | 2018-05-23 19:00 | NUR ---
Patient visited in room during nursing rounds. Patient alert and oriented x3. No distress or discomfort noted at this time. Patient visited by friends and mother at bedside. Patient ambulatory (self) in room prn. Pt IV on right antecubital (18g) infiltrated and will be replaced tonight. On scheduled IV antibiotics. Call cook within reach. Will monitor closely.
--- NOTE | 2018-05-23 19:22 | NUR ---
REPORT GIVEN TO ONCOMING NURSE, FOR CONTINUED CARE.
[2018-05-23 20:00] VITALS: BP 123/58
[2018-05-24] VITALS: BP 175/78
[2018-05-24] MEDS: ALBUTEROL/IPRATROPIUM 3 ML NEB NEB SCH ×4 (00:30→19:45)
[2018-05-24] MEDS: PIPER-TAZ 3.375 GM 50 ML IV SCH ×4 (00:30→17:23)
[2018-05-24 04:00] VITALS: BP 135/64
[2018-05-24] MEDS: ONDANSETRON HCL INJ 2MG/ML 2ML 2 MG/ML VIAL IV PRN ×5 (04:34→22:32)
[2018-05-24] MEDS: KETOROLAC TROMETHAMINE 30 MG/ML VIAL IV PRN ×2 (05:10→17:23)
[2018-05-24 05:28] LABS: BASOPHILS % 0.4 % (0.0-1.0); EOSINOPHILS # (AUTO) 0.2 (0.0-0.4); EOSINOPHILS % 2.7 % (0.0-6.0); LYMPHOCYTES # (AUTO) 2.3 (1.0-3.2); LYMPHOCYTES % 33.6 % (18.0-39.1); MEAN CORPUSCULAR HEMOGLOBIN 25.1 pg (28-32); MEAN CORPUSCULAR HGB CONC 31.3 g/dL (31-35); MEAN CORPUSCULAR VOLUME 80.4 fL (81-99); MONOCYTES # (AUTO) 0.7 (0.2-0.8); MONOCYTES % 9.5 % (4.4-11.3); NEUTROPHILS # (AUTO) 3.7 (2.1-6.9); NEUTROPHILS % 53.4 % (38.7-80.0); PLATELET COUNT 283 x10e3/uL (140-360); RED BLOOD COUNT 3.98 x10e6/uL (3.6-5.1); RED CELL DISTRIBUTION WIDTH 15.2 % (11.7-14.4)
[2018-05-24 05:50] LABS: ANION GAP 13.6 mmol/L (8-16); BLOOD UREA NITROGEN 10 mg/dL (7-26); BUN/CREATININE RATIO 9 (6-25); CALCIUM 9.3 mg/dL (8.4-10.2); CARBON DIOXIDE 22 mmol/L (22-29); CHLORIDE 109 mmol/L (98-107); CREATININE, SERUM 1.07 mg/dL (0.57-1.11); EST GLOMERULAR FILTRATION RATE > 60 ML/MIN (60-); GLUCOSE 97 mg/dL (74-118); POTASSIUM 3.6 mmol/L (3.5-5.1); SODIUM 141 mmol/L (136-145)
--- NOTE | 2018-05-24 07:02 | NUR ---
Received patient mid fowlers position, side rails upx2, call light within reach. Mother at bedside. AAOX4 to time, person, place, situation. Respirations even and unlabored. Instructed patient to use call light for assistance. Voiced understanding. Will continue to monitor.
[2018-05-24 08:00] VITALS: BP 111/53
[2018-05-24] MEDS: DOCUSATE SODIUM 100 MG CAP PO SCH ×2 (08:15→17:23)
[2018-05-24] MEDS: FAMOTIDINE 20 MG TAB PO SCH (08:15)
[2018-05-24] MEDS: VANCOMYCIN HCL 1.25 GM in SODIUM CHLORIDE 0.9% 250ML 250 ML IV SCH ×2 (11:33→23:00)
[2018-05-24 12:00] VITALS: BP 131/56
[2018-05-24] MEDS ORDERED: PROMETHAZINE 12.5MG/ NACL 0.9% 12.5 MG/50 ML BAG IV ONE (13:15)
[2018-05-24] MEDS: FAMOTIDINE 20 MG/2 ML VIAL IV SCH ×2 (14:00→17:23)
[2018-05-24] MEDS: LEVOFLOXACIN 750MG/D5W 150ML 150 ML IV SCH (15:08)
[2018-05-24 15:58] VITALS: BP 121/56
[2018-05-24 16:01] LABS: BILIRUBIN,DIRECT 0.2 mg/dL (0.0-0.5)
[2018-05-24] MEDS: DEXTROSE 5%/0.9% SOD CHL 1,000 ML IV SCH (17:23)
--- NOTE | 2018-05-24 18:42 | NUR ---
Sitting on sofa, family at bedside. NO s/s of acute distress noted. Report to be given to oncoming nurse.
--- NOTE | 2018-05-24 19:00 | NUR ---
Patient visited in room during nursing rounds. Patient alert and oriented x3. No distress or discomfort noted at this time. On IVF (D51/2NS at 50ml/hr). On scheduled IV antibiotics. Call cook within reach. Will monitor closely.
--- NOTE | 2018-05-24 19:14 | Progress Note ---
DATE: SUBJECTIVE: Ms. Gordon had a better night last night, but today she is complaining of nausea. No fever, no chills, but nausea and she vomited once. Her breathing is better. Overall, she is feeling better. REVIEW OF SYSTEMS: Otherwise remarkable. No more fever. PHYSICAL EXAMINATION: GENERAL: She is currently alert, oriented, does not seem to be in acute distress. VITAL SIGNS: Stable. Afebrile. HEENT: She is not icteric. Normocephalic. NECK: Supple. No JVD. No lymphadenopathy. No thyromegaly. CHEST: Clear bilateral. HEART: S1 and S2. No S3, S4, or murmur. ABDOMEN: Soft. Bowel sounds present. No tenderness. No hepatosplenomegaly. EXTREMITIES: No edema. SKIN: No rash. IMPRESSION: 1. Nausea and vomiting. Obtain amylase, lipase, and liver enzyme. She is currently on Phenergan. Check chemistry panel. 2. Pneumonia, clinically seems to be better now. Her blood cultures are negative. We are still waiting on Mycoplasma and urine Legionella antigen, but her group A was negative. We can probably change to oral antibiotic in a day or 2 once she is clinically better, but we need to resolve the issue of the nausea and vomiting. We will follow. MD JACOB Rondon/ONELIA /[id number]
[2018-05-24 20:00] VITALS: BP 130/60
--- NOTE | 2018-05-24 20:00 | NUR ---
Patient took a bath by self. No c/o discomfort or pain.
--- NOTE | 2018-05-24 20:00 | NUR ---
Patient took a shower and tolerated it well.
[2018-05-25] VITALS (8 sets, daily range): BP systolic 123–134; BP diastolic 56–71
[2018-05-25] MEDS: PIPER-TAZ 3.375 GM 50 ML IV SCH ×4 (00:50→17:07)
[2018-05-25] MEDS: ALBUTEROL/IPRATROPIUM 3 ML NEB NEB SCH ×5 (01:25→23:45)
[2018-05-25] MEDS: ONDANSETRON HCL INJ 2MG/ML 2ML 2 MG/ML VIAL IV PRN ×4 (06:18→21:43)
--- NOTE | 2018-05-25 06:30 | NUR ---
Patient vomited clear liquid (approx 100 ml). Pt stated she felt a little better but requests for phenergan on standby. Nurse (Roger) will attempt to page Dr. Crawford for this request.
--- NOTE | 2018-05-25 06:38 | NUR ---
Paged Dr. Crawford via answering service regarding patient's request for Phenergan medication for nausea.
--- NOTE | 2018-05-25 07:00 | NUR ---
BEDSIDE SHIFT REPORT ON PT FROM NIGHT RN. PT DENIES NEEDS AT THIS TIME.
--- NOTE | 2018-05-25 07:00 | NUR ---
BEDSIDE SHIFT REPORT ON PT FROM NIGHT RN. PT DENIES NEEDS AT THIS TIME.
[2018-05-25] MEDS ORDERED: PROMETHAZINE 12.5MG/ NACL 0.9% 12.5 MG/50 ML BAG IV ONE (07:30)
--- NOTE | 2018-05-25 09:10 | Diagnostic Imaging Report ---
EXAM: ABDOMEN-1VIEW (KUB) DATE: 05/25/2018 7:27 AM INDICATION: Nausea and vomiting COMPARISON: CT abdomen/pelvis, 05/20/2018 FINDINGS: There is a normal distribution of air in the small and large bowel. No specific abnormal soft tissue calcification. An IUD is seen in the midline pelvis. IMPRESSION: No bowel dilatation or evidence for obstruction. Signed by: Dr. Kurt Mcclendon M.D. on 05/25/2018 9:07 AM
[2018-05-25] MEDS: FAMOTIDINE 20 MG/2 ML VIAL IV SCH ×2 (09:27→16:58)
[2018-05-25] MEDS: DOCUSATE SODIUM 100 MG CAP PO SCH ×2 (09:27→16:58)
[2018-05-25] MEDS: VANCOMYCIN HCL 1.25 GM in SODIUM CHLORIDE 0.9% 250ML 250 ML IV SCH (11:00)
[2018-05-25] MEDS: DEXTROSE 5%/0.9% SOD CHL 1,000 ML IV SCH (12:29)
[2018-05-25] MEDS ORDERED: KETOROLAC TROMETHAMINE 30 MG/ML VIAL IV PRN (20:15)
--- NOTE | 2018-05-25 20:15 | NUR ---
PT IN BED, FAMILY AT BEDSIDE, INITIAL ASSESSMENT COMPLETE, CALL LIGHT IN REACH, PT C/O HEADACHE, REQUESTS TORADOL FOR PAIN, CALL PLACED TO DR. DELGADO FOR ORDERS, IV INTACT, NO OTHER PAIN, NAUSEA AT TIMES, TOLD TO CALL FOR NEEDS
[2018-05-26] VITALS (7 sets, daily range): BP systolic 108–149; BP diastolic 59–90
--- NOTE | 2018-05-26 | NUR ---
PT WAKES EASILY FOR VS AND MEDS, VS STABLE, NO DISTRESS NOTED
[2018-05-26] MEDS: ONDANSETRON HCL INJ 2MG/ML 2ML 2 MG/ML VIAL IV PRN ×3 (01:30→10:18)
[2018-05-26] MEDS: PIPER-TAZ 3.375 GM 50 ML IV SCH ×2 (06:00)
--- NOTE | 2018-05-26 06:35 | NUR ---
pt awake, nauseated through the night, iv infusing, call light in reach, family at bedside, vs stable, no distress noted
[2018-05-26] MEDS: ALBUTEROL/IPRATROPIUM 3 ML NEB NEB SCH ×3 (07:00→19:20)
--- NOTE | 2018-05-26 07:00 | NUR ---
BEDSIDE SHIFT REPORT ON PT FROM NIGHT RN. PT DENIES NEEDS AT THIS TIME.
[2018-05-26] MEDS: FAMOTIDINE 20 MG/2 ML VIAL IV SCH ×2 (08:23→18:07)
[2018-05-26] MEDS: DEXTROSE 5%/0.9% SOD CHL 1,000 ML IV SCH (08:42)
[2018-05-26] MEDS: DOCUSATE SODIUM 100 MG CAP PO SCH ×2 (08:43→16:57)
[2018-05-26] MEDS: ACETAMINOPHEN 325 MG TAB PO PRN (08:43)
[2018-05-26] MEDS ORDERED: PANTOPRAZOLE 40 MG 10ML VIAL IV STA (12:42)
[2018-05-26] MEDS ORDERED: PANTOPRAZOL 40MG/SOD CHL 0.9% 250 ML IV SCH (12:45)
[2018-05-26] MEDS: PANTOPRAZOL 40MG/SOD CHL 0.9% 50 ML IV SCH ×3 (13:39→23:00)
--- NOTE | 2018-05-26 15:46 | NUR ---
Nutrition Screen Note RD Recommendation for Physician: -Rec advance to regular diet as tolerated Plan of Care: RD following, monitoring for tolerance and adequacy Nutrition reason for involvement: LOS Primary Diagnose(s): abdominal pain, nausea and vomiting PMH: None Ht: 68in Wt: 217.56lb BMI: 33.1kg/m2 IBW: 140lb RD Assessment: (05/26) Chart reviewed. Labs and meds reviewed. 22yo F, who was admitted for abdominal pain, nausea and vomiting. WBC WNL. Abd X-ray was unremarkable. Pt continued to have nausea and vomiting. Visited pt in the room. Pt was not able to hold down any foods down. LBM 3/. No chewing or swallowing difficulty reported. 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 Currently NPO; GI has been consulted. Will continue to monitor and follow. Current Diet: NPO Malnutrition Evaluation (date of eval) The patient does not meet criteria for a specified degree of malnutrition at this time. Will re-evaluate at follow-up as appropriate. Diet Education Needs Assessment: Diet education not indicated. Nutrition Care Level: low Signed: Jyoti Patel, MS, RD, LD
[2018-05-26] MEDS: METOCLOPRAMIDE HCL 10 MG/2ML VIAL IV SCH (18:07)
--- NOTE | 2018-05-26 19:25 | NUR ---
Patient received sitting up in bed. Family at bedside. AAO x 4. No complaints of pain or nausea. Patient stated she last vomited at 4pm. Fall precautions maintained. Call light within reach.
--- NOTE | 2018-05-26 19:56 | NUR ---
Dr. William García called to inquire about patient's welfare. New order received to change patient's diet from "NPO" to "Full Liquid".
--- NOTE | 2018-05-26 20:10 | NUR ---
Patient instructed regarding Full liquid diet. Patient verbalized understanding.
[2018-05-27] VITALS (8 sets, daily range): BP systolic 133–152; BP diastolic 70–85
[2018-05-27] MEDS: METOCLOPRAMIDE HCL 10 MG/2ML VIAL IV SCH ×4 (00:12→18:15)
[2018-05-27] MEDS: ALBUTEROL/IPRATROPIUM 3 ML NEB NEB SCH ×4 (00:35→19:57)
[2018-05-27] MEDS: PANTOPRAZOL 40MG/SOD CHL 0.9% 50 ML IV SCH ×5 (04:20→23:26)
[2018-05-27] MEDS: DEXTROSE 5%/0.9% SOD CHL 1,000 ML IV SCH (06:00)
--- NOTE | 2018-05-27 07:00 | NUR ---
Received care of this 22 y/o from the previous nurse. She denies pain or discomfort at this time and reports that she is still unable to eat but no vomitus noted today. The family is at the bedside and side rails are up times 2.
[2018-05-27] MEDS: DOCUSATE SODIUM 100 MG CAP PO SCH ×2 (09:00→17:00)
[2018-05-27] MEDS: FAMOTIDINE 20 MG/2 ML VIAL IV SCH ×2 (09:04→17:21)
--- NOTE | 2018-05-27 13:45 | NUR ---
Dr. Nelly García called in the ask about the pt. and was given an update with order to increase the pt's diet if acceptable with her. A gi soft diet was ordered.
--- NOTE | 2018-05-27 19:25 | NUR ---
Patient received sitting in bed. Family at bedside. Patient complained of nausea and dry heaves, but no vomitus. No acute distress noted. Will continue to monitor.
--- NOTE | 2018-05-27 22:07 | NUR ---
Dr. William García here to see patient. New order received.
[2018-05-27] MEDS ORDERED: ONDANSETRON HCL INJ 2MG/ML 2ML 2 MG/ML VIAL IV PRN (22:15)
[2018-05-28] VITALS (8 sets, daily range): BP systolic 115–159; BP diastolic 58–93
[2018-05-28] MEDS: METOCLOPRAMIDE HCL 10 MG/2ML VIAL IV SCH ×4 (00:45→18:12)
[2018-05-28] MEDS: ONDANSETRON HCL INJ 2MG/ML 2ML 2 MG/ML VIAL IV SCH ×4 (00:50→18:12)
[2018-05-28] MEDS: DEXTROSE 5%/0.9% SOD CHL 1,000 ML IV SCH ×2 (00:50→15:45)
[2018-05-28] MEDS: ALBUTEROL/IPRATROPIUM 3 ML NEB NEB SCH ×4 (01:00→19:17)
[2018-05-28] MEDS: ACETAMINOPHEN 325 MG TAB PO PRN (01:54)
[2018-05-28] MEDS: PANTOPRAZOL 40MG/SOD CHL 0.9% 50 ML IV SCH ×4 (04:00→19:05)
[2018-05-28 06:00] LABS: BASOPHILS % 0.5 % (0.0-1.0); EOSINOPHILS # (AUTO) 0.3 (0.0-0.4); HEMATOCRIT 27.1 % (34.2-44.1); HEMOGLOBIN 8.4 g/dL (12.0-16.0); LYMPHOCYTES # (AUTO) 1.6 (1.0-3.2); LYMPHOCYTES % 19.5 % (18.0-39.1); MEAN CORPUSCULAR HEMOGLOBIN 24.3 pg (28-32); MEAN CORPUSCULAR VOLUME 78.3 fL (81-99); MONOCYTES # (AUTO) 0.6 (0.2-0.8); MONOCYTES % 7.2 % (4.4-11.3); NEUTROPHILS # (AUTO) 5.8 (2.1-6.9); NEUTROPHILS % 68.9 % (38.7-80.0); PLATELET COUNT 270 x10e3/uL (140-360); RED BLOOD COUNT 3.46 x10e6/uL (3.6-5.1); RED CELL DISTRIBUTION WIDTH 15.8 % (11.7-14.4)
[2018-05-28 06:41] LABS: ALBUMIN 2.5 g/dL (3.5-5.0); ALBUMIN/GLOBULIN RATIO 0.7 (0.8-2.0); ANION GAP 11.1 mmol/L (8-16); CALCIUM 8.9 mg/dL (8.4-10.2); CREATININE, SERUM 3.68 mg/dL (0.57-1.11); POTASSIUM 4.1 mmol/L (3.5-5.1)
[2018-05-28] MEDS: FAMOTIDINE 20 MG/2 ML VIAL IV SCH ×2 (08:43→17:10)
[2018-05-28] MEDS: DOCUSATE SODIUM 100 MG CAP PO SCH ×2 (08:45→17:00)
--- NOTE | 2018-05-28 09:00 | NUR ---
The pt. is awake and denies vomiting this morning and states she feels better. The mom is at the bedside. The pt. denies pain or discomfort.
--- NOTE | 2018-05-28 15:15 | NUR ---
Dr. Carerno consulted Dr. Savage and he is here to see the pt. He also ordered a urine sodium and c&s and the pt. has been instructed of the need.
[2018-05-28 16:07] LABS: CLARITY,URINE SL CLOUDY (CLEAR); COLOR,URINE YELLOW (YELLOW); KETONES,URINE NEGATIVE (NEGATIVE); LEUKOCYTE ESTERASE ,URINE TRACE (NEGATIVE); NITRITE,URINE NEGATIVE (NEGATIVE); PROTEIN,URINE DIPSTICK NEGATIVE (NEGATIVE)
[2018-05-28 16:08] LABS: BILIRUBIN,URINE NEGATIVE (NEGATIVE); URINE UROBILINOGEN 0.2 mg/dL (0.2 - 1)
[2018-05-28 16:26] LABS: BACTERIA,URINE FEW /HPF; EPITHELIAL CELLS,URINE FEW /LPF
[2018-05-28 16:38] LABS: SODIUM,URINE 87 mmol/L
--- NOTE | 2018-05-28 19:15 | NUR ---
Patient visited in room during nursing rounds. Patient alert and oriented x3. No distress or discomfort noted at this time. Patient visited by friends at bedside. Patient ambulatory (self) in room prn. Pt on IVF (D5NS at 125ml/hr). On scheduled IV antibiotics. Call cook within reach. Will monitor closely.
[2018-05-29] VITALS (8 sets, daily range): BP systolic 122–177; BP diastolic 55–88
[2018-05-29] MEDS: PANTOPRAZOL 40MG/SOD CHL 0.9% 50 ML IV SCH ×5 (00:20→20:47)
[2018-05-29] MEDS: METOCLOPRAMIDE HCL 10 MG/2ML VIAL IV SCH ×4 (00:20→18:23)
[2018-05-29] MEDS: ONDANSETRON HCL INJ 2MG/ML 2ML 2 MG/ML VIAL IV SCH ×4 (00:20→18:23)
--- NOTE | 2018-05-29 00:30 | NUR ---
Dr. William García came and visited pt.
[2018-05-29] MEDS: ALBUTEROL/IPRATROPIUM 3 ML NEB NEB SCH ×4 (00:45→19:22)
[2018-05-29] MEDS: DEXTROSE 5%/0.9% SOD CHL 1,000 ML IV SCH ×2 (02:24→14:00)
[2018-05-29 05:14] LABS: BASOPHILS % 0.3 % (0.0-1.0); EOSINOPHILS # (AUTO) 0.3 (0.0-0.4); EOSINOPHILS % 2.6 % (0.0-6.0); HEMOGLOBIN 9.1 g/dL (12.0-16.0); LYMPHOCYTES # (AUTO) 1.7 (1.0-3.2); LYMPHOCYTES % 16.4 % (18.0-39.1); MEAN CORPUSCULAR HEMOGLOBIN 23.9 pg (28-32); MEAN CORPUSCULAR HGB CONC 30.3 g/dL (31-35); MEAN CORPUSCULAR VOLUME 78.7 fL (81-99); MONOCYTES # (AUTO) 0.8 (0.2-0.8); MONOCYTES % 7.8 % (4.4-11.3); NEUTROPHILS # (AUTO) 7.6 (2.1-6.9); PLATELET COUNT 349 x10e3/uL (140-360); RED BLOOD COUNT 3.81 x10e6/uL (3.6-5.1); RED CELL DISTRIBUTION WIDTH 15.8 % (11.7-14.4)
[2018-05-29 05:44] LABS: ALBUMIN 2.7 g/dL (3.5-5.0); ALBUMIN/GLOBULIN RATIO 0.7 (0.8-2.0); ANION GAP 13.8 mmol/L (8-16); CALCIUM 8.8 mg/dL (8.4-10.2); CREATININE, SERUM 3.59 mg/dL (0.57-1.11); POTASSIUM 3.8 mmol/L (3.5-5.1)
--- NOTE | 2018-05-29 07:00 | NUR ---
Performed bedside shift report. Patient is alert/oriented x3 with no pain and in bed.
[2018-05-29] MEDS: DOCUSATE SODIUM 100 MG CAP PO SCH ×2 (09:00→17:00)
[2018-05-29] MEDS: FAMOTIDINE 20 MG/2 ML VIAL IV SCH ×2 (09:34→18:22)
[2018-05-29 15:48] LABS: ANION GAP 13.9 mmol/L (8-16); CREATININE, SERUM 3.41 mg/dL (0.57-1.11); POTASSIUM 3.9 mmol/L (3.5-5.1)
[2018-05-29 17:07] LABS: BILIRUBIN,URINE NEGATIVE (NEGATIVE); CLARITY,URINE SL CLOUDY (CLEAR); COLOR,URINE YELLOW (YELLOW); KETONES,URINE NEGATIVE (NEGATIVE); LEUKOCYTE ESTERASE ,URINE TRACE (NEGATIVE); NITRITE,URINE NEGATIVE (NEGATIVE); PROTEIN,URINE DIPSTICK NEGATIVE (NEGATIVE); URINE UROBILINOGEN 0.2 mg/dL (0.2 - 1)
[2018-05-29 17:08] LABS: EPITHELIAL CELLS,URINE FEW /LPF; WBC,URINE (MAN) 0-5 /HPF (0-5)
[2018-05-29] MEDS: SODIUM BICARBONATE 650 MG TAB PO SCH (18:23)
[2018-05-30] VITALS (8 sets, daily range): BP systolic 115–156; BP diastolic 62–93
[2018-05-30] MEDS: DEXTROSE 5%/0.9% SOD CHL 1,000 ML IV SCH (00:13)
[2018-05-30] MEDS: METOCLOPRAMIDE HCL 10 MG/2ML VIAL IV SCH ×5 (00:14→23:45)
[2018-05-30] MEDS: ONDANSETRON HCL INJ 2MG/ML 2ML 2 MG/ML VIAL IV SCH ×2 (00:14→13:03)
[2018-05-30] MEDS: ALBUTEROL/IPRATROPIUM 3 ML NEB NEB SCH ×4 (00:17→20:40)
[2018-05-30] MEDS: PANTOPRAZOL 40MG/SOD CHL 0.9% 50 ML IV SCH ×5 (02:21→20:46)
[2018-05-30 05:28] LABS: ALBUMIN 2.7 g/dL (3.5-5.0); ALBUMIN/GLOBULIN RATIO 0.7 (0.8-2.0); ANION GAP 12.9 mmol/L (8-16); CREATININE, SERUM 3.18 mg/dL (0.57-1.11); POTASSIUM 3.9 mmol/L (3.5-5.1)
[2018-05-30] MEDS: DOCUSATE SODIUM 100 MG CAP PO SCH ×2 (09:00→17:00)
[2018-05-30] MEDS: SODIUM BICARBONATE 650 MG TAB PO SCH ×2 (10:06→17:01)
--- NOTE | 2018-05-30 11:58 | NUR ---
New IV on left forearm 20G and right wrist 20G by charge nurse. Left wrist 20G removed by charge nurse. Addendum: 05/30/18 at 1159 by Jesus Manuel Dumont RN Amended: Links added.
[2018-05-30] MEDS: FAMOTIDINE 20 MG/2 ML VIAL IV SCH ×2 (13:03→17:00)
[2018-05-30] MEDS: SODIUM BICARBONATE 8.4% SYRING 150 ML in DEXTROSE 5% 1,000 ML IV SCH (13:03)
--- NOTE | 2018-05-30 17:39 | Diagnostic Imaging Report ---
EXAMINATION: CHEST 2 VIEWS INDICATION: ^LEFT PNEUMONIA ^[id number] ^[id number] COMPARISON: CTA chest and chest x-ray 05/22/2018 FINDINGS: PA and lateral views TUBES and LINES: None. LUNGS: Improved aeration compared to previous exam. Bibasilar airspace opacities are redemonstrated. Two new rounded foci of consolidation in the right midlung field have developed. No interstitial thickening. No vascular congestion. PLEURA: Bilateral pleural effusions, left larger than right. HEART AND MEDIASTINUM: The heart is top normal in size, stable BONES AND SOFT TISSUES: No focal osseous lesions. Soft tissues are unremarkable. UPPER ABDOMEN: No free air under the diaphragm. IMPRESSION: Bilateral pleural effusions, left larger than right, with bibasilar airspace opacities suggestive of pneumonia and atelectasis. Two new foci in the right midlung field are suggestive of developing or progressing infiltrates. Signed by: Dr. Gaston Rivera MD on 05/30/2018 5:36 PM
[2018-05-30] MEDS: ACETAMINOPHEN 325 MG TAB PO PRN (20:46)
[2018-05-31] VITALS (8 sets, daily range): BP systolic 118–167; BP diastolic 56–89
[2018-05-31] MEDS: ALBUTEROL/IPRATROPIUM 3 ML NEB NEB SCH ×4 (00:05→19:00)
[2018-05-31] MEDS: PANTOPRAZOL 40MG/SOD CHL 0.9% 50 ML IV SCH ×3 (00:43→12:00)
[2018-05-31] MEDS: METOCLOPRAMIDE HCL 10 MG/2ML VIAL IV SCH ×3 (05:16→18:00)
[2018-05-31 05:43] LABS: ALBUMIN 2.6 g/dL (3.5-5.0); ALBUMIN/GLOBULIN RATIO 0.7 (0.8-2.0); ANION GAP 12.6 mmol/L (8-16); CALCIUM 8.8 mg/dL (8.4-10.2); CREATININE, SERUM 2.77 mg/dL (0.57-1.11); POTASSIUM 3.6 mmol/L (3.5-5.1)
[2018-05-31] MEDS: SODIUM BICARBONATE 8.4% SYRING 150 ML in DEXTROSE 5% 1,000 ML IV SCH (06:18)
[2018-05-31 07:14] LABS: HIV 1&2 AB SCREEN NON-REACTIVE (NONREACTIVE)
--- NOTE | 2018-05-31 07:15 | NUR ---
RCD PT AT BED PT IS ALERT AND ORIENTED PT RESTING ON BED NO SIGNS OF ANY DISTRESS NOTED IV PATENT FAMILY AT BED SIDE BED LOW AND LOCKED CALL LIGHT IN REACH
[2018-05-31] MEDS: SODIUM BICARBONATE 650 MG TAB PO SCH ×2 (09:00→17:00)
[2018-05-31] MEDS: ONDANSETRON HCL INJ 2MG/ML 2ML 2 MG/ML VIAL IV SCH (09:00)
[2018-05-31] MEDS: FAMOTIDINE 20 MG/2 ML VIAL IV SCH ×2 (09:00→17:00)
[2018-05-31] MEDS: DOCUSATE SODIUM 100 MG CAP PO SCH ×2 (09:00→17:00)
[2018-05-31] MEDS ORDERED: LEVOFLOXACIN 500MG/D5W 100ML 100 ML IV SCH (16:15)
[2018-05-31] MEDS ORDERED: PROMETHAZINE HCL 25 MG TAB PO PRN (16:30)
[2018-05-31] MEDS: LINEZOLID 600 MG/D5W 300ML 300 ML IV SCH (16:30)
[2018-05-31] MEDS: CEFEPIME 1GM/NS 0.9% 50 ML 50 ML IV SCH (16:30)
[2018-05-31] MEDS ORDERED: SODIUM CHLORIDE 0.9% 250ML 250 ML ONE (16:42)
[2018-05-31] MEDS ORDERED: DOXYCYCLINE HYCLATE TABLET 100 MG TAB PO SCH (17:00)
--- NOTE | 2018-05-31 18:45 | NUR ---
PT RESTING ON BED BED SIDE REPORT GIVEN TO ONCOMING NURSE
[2018-06-01] VITALS (10 sets, daily range): BP systolic 114–144; BP diastolic 55–89
[2018-06-01] MEDS: METOCLOPRAMIDE HCL 10 MG/2ML VIAL IV SCH ×4 (00:20→17:14)
[2018-06-01] MEDS: ALBUTEROL/IPRATROPIUM 3 ML NEB NEB SCH ×4 (00:22→19:15)
[2018-06-01] MEDS: LINEZOLID 600 MG/D5W 300ML 300 ML IV SCH ×2 (05:06→16:30)
[2018-06-01 05:51] LABS: BASOPHILS # (AUTO) 0.1 (0.0-0.1); BASOPHILS % 0.4 % (0.0-1.0); EOSINOPHILS # (AUTO) 0.4 (0.0-0.4); EOSINOPHILS % 3.5 % (0.0-6.0); HEMATOCRIT 29.7 % (34.2-44.1); HEMOGLOBIN 9.3 g/dL (12.0-16.0); LYMPHOCYTES # (AUTO) 2.4 (1.0-3.2); LYMPHOCYTES % 20.4 % (18.0-39.1); MEAN CORPUSCULAR HEMOGLOBIN 24.7 pg (28-32); MEAN CORPUSCULAR HGB CONC 31.3 g/dL (31-35); MONOCYTES # (AUTO) 0.8 (0.2-0.8); MONOCYTES % 6.9 % (4.4-11.3); PLATELET COUNT 403 x10e3/uL (140-360); RED BLOOD COUNT 3.76 x10e6/uL (3.6-5.1); RED CELL DISTRIBUTION WIDTH 16.1 % (11.7-14.4)
[2018-06-01 06:28] LABS: ANION GAP 11.9 mmol/L (8-16); CALCIUM 9.3 mg/dL (8.4-10.2); CREATININE, SERUM 2.54 mg/dL (0.57-1.11); POTASSIUM 3.9 mmol/L (3.5-5.1)
--- NOTE | 2018-06-01 07:30 | NUR ---
MET PATIENT, PATIENT ALERT AND ORIENTED X4, NO SIGNS OF ACUTE DISTRESS, PATIENT IV IN HER LEFT ARM IS RED AND SWOLLEN, PATIENT STATED, "I AM NOT GOING TO TAKE ANOTHER IV, I HAVE HAD TEN SO FAR. I AM NOT GOING TO HAVE ELEVEN." ATTEMPTED TO PERSUADE THE PATIENT SO THAT SHE CAN RECEIVE HER IV MEDICATIONS, PATIENT CONTINUED TO SAY, "NO." CALLED DR. OCAMPO, HE STATED, " SHE NEEDS IT, OKAY I WILL TALK TO HER."
[2018-06-01] MEDS: ONDANSETRON HCL INJ 2MG/ML 2ML 2 MG/ML VIAL IV SCH (09:00)
[2018-06-01] MEDS: FAMOTIDINE 20 MG/2 ML VIAL IV SCH ×2 (09:00→17:00)
[2018-06-01] MEDS: DOCUSATE SODIUM 100 MG CAP PO SCH ×2 (09:00→17:00)
[2018-06-01] MEDS: SODIUM BICARBONATE 650 MG TAB PO SCH ×2 (10:49→17:10)
[2018-06-01] MEDS: CEFEPIME 1GM/NS 0.9% 50 ML 50 ML IV SCH (16:30)
--- NOTE | 2018-06-01 16:38 | NUR ---
CHARGE NURSE INSERTED NEW IV, PATIENT COMPLAINED OF PAIN AT IV DITE AND ASKED FOR THE IV TO BE REMOVED, PATIENT REFUSED TO ALLOW A RE-ATTEMPT OF IV INSERTION.
[2018-06-01] MEDS: ACETAMINOPHEN 325 MG TAB PO PRN (18:28)
--- NOTE | 2018-06-01 19:13 | NUR ---
RECEIVED PATIENT RESTING IN BED. RESPIRATIONS EVEN AND UNLABORED, NO ACUTE DISTRESS NOTED. DENIES PAIN OR DISCOMFORT. PATIENT DOES NOT HAVE IV ACCESS, REFUSING. CALL LIGHT WITHIN REACH. BED IN THE LOWEST POSITION. CALL LIGHT WITHIN REACH. BED IN THE LOWEST POSITION.
--- NOTE | 2018-06-01 19:35 | NUR ---
PAGED DR. LE TO INFORM HIM THAT PATIENT IS REFUSING IV, ORDER RECEIVED TO CHANGE IV ABTS TO PO. ENTERED ORDERS.
[2018-06-01] MEDS: CEFUROXIME AXETIL 250 MG TAB PO SCH (21:04)
[2018-06-01] MEDS: LINEZOLID 600 MG TAB PO SCH (21:04)
[2018-06-01] MEDS: METOCLOPRAMIDE HCL 10 MG TAB PO SCH (23:16)
[2018-06-01] MEDS ORDERED: FAMOTIDINE 20 MG TAB PO PRN (23:45)
[2018-06-02] MEDS: ALBUTEROL/IPRATROPIUM 3 ML NEB NEB SCH ×3 (01:05→13:00)
[2018-06-02 01:25] VITALS: BP 101/51
[2018-06-02 04:00] VITALS: BP 118/62
[2018-06-02] MEDS: METOCLOPRAMIDE HCL 10 MG TAB PO SCH ×2 (05:59→12:00)
--- NOTE | 2018-06-02 07:15 | NUR ---
PT ASLEEP RESP EVEN AND UNLABORED AT THIS TIME NO DISTRESS NOTED, PT EASILY AROUSED AND PT ABLE TO MAKE NEEDS KNOWN, CALL LIGHT IN REACH.
--- NOTE | 2018-06-02 07:17 | NUR ---
REPORT GIVEN TO ONCOMING NURSE. PATIENT IS RESTING IN BED. NO ACUTE DISTRESS NOTED. CALL LIGHT WITHIN REACH. BED IN THE LOWEST POSITION.
[2018-06-02] MEDS ORDERED: PANTOPRAZOLE SOD 40 MG TABEC PO SCH ×2 (07:30→09:00)
[2018-06-02 08:10] VITALS: BP 103/55
[2018-06-02] MEDS ORDERED: ONDANSETRON HCL 4 MG ORAL DISINTEGRATING TAB PO SCH (09:00)
[2018-06-02] MEDS: DOCUSATE SODIUM 100 MG CAP PO SCH (09:00)
[2018-06-02] MEDS: CEFUROXIME AXETIL 250 MG TAB PO SCH (10:04)
[2018-06-02] MEDS: SODIUM BICARBONATE 650 MG TAB PO SCH (10:04)
[2018-06-02] MEDS: LINEZOLID 600 MG TAB PO SCH (10:04)
[2018-06-02 12:02] VITALS: BP 120/74
[2018-06-02 12:12] LABS: ANION GAP 9.8 mmol/L (8-16); CALCIUM 8.8 mg/dL (8.4-10.2); CREATININE, SERUM 1.99 mg/dL (0.57-1.11); POTASSIUM 3.8 mmol/L (3.5-5.1)
--- NOTE | 2018-06-02 14:24 | NUR ---
pt discharged home with family member, pt and parent were educated on medications. no iv site. pt was asked to follow up with PCP and Pulmonary
--- NOTE | 2018-06-03 07:15 | Discharge Summary ---
FINAL DIAGNOSES: 1. Multilobar pneumonia. 2. Urinary tract infection. 3. A 3.1 cm lesion on the right kidney. 4. Acute kidney injury, resolving. Creatinine down to 2.54 from 3.7. 5. History of asthma. ADMISSION HISTORY AND HOSPITAL COURSE: Ms. Gordon is a 23-year-old female. She initially presented with the complaints of fever at home and chills, and was treated for UTI. However, the CT did not show any evidence of pyelonephritis. Next day, she became increasingly short of breath and a CT chest was done, which showed multilobar pneumonia. I started the patient on IV antibiotics, broad spectrum. Infectious Disease was consulted and the patient started improving. However, three days later, she developed an acute kidney injury. Nephrology was consulted. IV hydration was started and the renal failure started resolving. The BMP on 06/01 showed creatinine of 2.54. All her cultures so far have been negative and urine Legionella antigen and group A strep screen along with HIV have been negative as well. She has been cleared to be discharged by Nephrology and Infectious Disease. She will be discharged home to follow up with me in 4 to 6 weeks for repeating the CT of the chest. She will follow up with Urology, ID, and Nephrology per their recommendations. MD ROSANNE Scott/ONELIA /[id number]
== END 2018-06-02 14:40 | disposition home or self-care (01) | DRG 871 ==
LOC: ER 10:57 → ERHOLD 14:44 → MED/SURG2 16:37
PROVIDERS: ADMIT Internal Medicine; ATTEND Internal Medicine
DX: A41.9 Sepsis, unspecified organism (principal); J96.00 Acute respiratory failure, unspecified whether with hypoxia or hypercapnia; J18.9 Pneumonia, unspecified organism; N17.9 Acute kidney failure, unspecified; N39.0 Urinary tract infection, site not specified; K21.9 Gastro-esophageal reflux disease without esophagitis; Z83.3 Family history of diabetes mellitus; Z82.49 Family history of ischemic heart disease and other diseases of the circulatory system; R31.29 Other microscopic hematuria; N28.89 Other specified disorders of kidney and ureter; E66.9 Obesity, unspecified; Z68.36 Body mass index [BMI] 36.0-36.9, adult; D64.9 Anemia, unspecified
CPT/HCPCS: 36415; 71045; 71046; 71260; 74018; 74177; 76770; 80048; 80053; 80076; 80202; 81001; 82150; 83516; 83518; 83605; 83690; 84145; 84300; 84702; 85025; 86021; 86160; 86225; 86235; 86255; 86256; 86376; 86738; 87040; 87070; 87086; 87390; 87449; 94640; 96360; 99284; G0433; G0435; J0692; J1885; J1940; J2020; J2270; J2405; J2543; J2550; J2765; J3370; J7030; J7042; J7050; J7070; Q9967